=== PATIENT | female | born 1960 | race Caucasian/White ===

== ENCOUNTER 2021-09-02 15:40 | Emergency (ER) | payer BC ==
[~2021-09-02] VITALS: Ht 157.5 cm; Wt 112.5 kg
[2021-09-02 15:53] VITALS: BP 134/71
--- NOTE | 2021-09-02 16:00 | NUR ---
PT AMBULATED TO BED 6
--- NOTE | 2021-09-02 16:17 | NUR ---
60 Y/O FEMALE BIB FAMILY WITH C/O EPISODES OF PALPITATIONS AND RIGHT SHOULDER PAIN. STATES SHE HAS BEEN MONITORING HER HEART RATE AT HOME AND IT HAS REACHED THE "160'S." DENIES CP, SOB IN TRIAGE. REPORTS TAKING ADVIL WITH SOME RELIEF. PT IS ABLE TO SPEAK IN FULL SENTENCES. VSS. BP 134/67, R14 O2 SAT 96% ROOM AIR, P 83. WILL CONTINUE TO MONITOR. PT IS ALERT AND ORIENTED X4. LUNG SOUNDS ARE CTA. BED LOCKED IN LOWEST POSITION. BED RAIL X1. PT'S SON AT BEDSIDE. PMH: DM, HTN NKA
--- NOTE | 2021-09-02 16:25 | NUR ---
XR AT PT BEDSIDE
--- NOTE | 2021-09-02 16:36 | NUR ---
LAB AT PT BEDSIDE
[2021-09-02 16:59] LABS: BASOPHILS % (AUTO) 0.5 % (0.0-2.0); EOSINOPHILS # (AUTO) 0.2 K/uL (0-0.4); EOSINOPHILS % (AUTO) 2.9 % (0.0-4.0); HEMATOCRIT 39.4 % (36-48); HEMOGLOBIN 13.1 g/dL (12.0-16.0); LYMPHOCYTES # (AUTO) 1.7 K/uL (2.5-16.5); LYMPHOCYTES % (AUTO) 24.1 % (20.5-51.1); MEAN CORPUSCULAR HEMOGLOBIN 27 pg (27-31); MEAN CORPUSCULAR HGB CONC 33 g/dL (33-37); MEAN CORPUSCULAR VOLUME 81.8 fL (80-94); MONOCYTES # (AUTO) 0.4 K/uL (0.8-1.0); MONOCYTES % (AUTO) 6.3 % (1.7-9.3); NEUTROPHILS # (AUTO) 4.5 K/uL (1.8-7.7); NEUTROPHILS % (AUTO) 66.2 % (42.2-75.2); PLATELET COUNT (AUTO) 265 K/uL (140-450); RED BLOOD CELL COUNT(AUTO) 4.81 MIL/uL (4.20-5.40); RED CELL DISTRIBUTION WIDTH 14.5 % (11.6-13.7); WHITE BLOOD COUNT (AUTO) 6.8 K/uL (4.8-10.8)
[2021-09-02 17:26] LABS: ALBUMIN 3.7 g/dL (3.4-5.0); ANION GAP 12.2 (8-16); ASPARTATE AMINOTRANSFERASE 20 U/L (15-37); CARBON DIOXIDE 28.8 mmol/L (21-32); CHLORIDE 105 mmol/L (98-107); CREATININE 0.7 mg/dL (0.6-1.3); GFR ARICAN-AMERICAN 110 mL/min (>90); GLUCOSE 202 mg/dL (74-106); SODIUM SERUM 142 mmol/L (136-145); THYROID STIMULATING HORMONE 2.16 uIU/mL (0.34-3.74); TOTAL BILIRUBIN 0.6 mg/dL (0.0-1.0); UREA NITROGEN, BLOOD 16 mg/dL (7-18)
[2021-09-02 18:47] VITALS: BP 144/72
--- NOTE | 2021-09-02 18:47 | NUR ---
Patient discharged with v/s stable. Written and verbal after care instructions given and explained. Patient verbalized understanding. Ambulatory with steady gait. All questions addressed prior to discharge. Advised to follow up with PMD.
== END 2021-09-02 18:49 | disposition home or self-care (01) ==
LOC: MED 15:40
DX: R00.2 Palpitations (principal); E11.9 Type 2 diabetes mellitus without complications; I10 Essential (primary) hypertension; E78.00 Pure hypercholesterolemia, unspecified
CPT/HCPCS: 36415; 71045; 80053; 84443; 84484; 85025; 93005; 99285; Q0092